=== PATIENT | female | born 1985 | race Hispanic/Latino ===

== ENCOUNTER 2017-06-23 07:30 | Inpatient (IN) | payer BC ==
--- NOTE | 2017-06-19 12:25 | History and Physical Report ---
History of Present Illness Date of examination: 06/15/17 Date of admission: 06/23/2017 Chief complaint: here for c/s with BTL History of present illness: Pt presents for repeat c/s x 3 with BTL All risk, benefits and alternatives were d/w pt and questions were addressed and answered. Consents signed and given to pt to present at hospital on day of surgery. 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: abnormal PAP smear Family/Genetic History: other (see hpi) Social history: no significant social history, - Obstetrical History Expected Date of Delivery: 06/30/17 Actual Gestation: 38 Week(s) 3 Day(s) : 5 Para: 3 Number of Living Children: 3 Medications and Allergies Allergies Allergy/AdvReac Type Severity Reaction Status Date / Time No Known Allergies Allergy Unverified 04/21/14 16:34 Home Medications Medication Instructions Recorded Confirmed Last Taken Type Ibuprofen [Motrin 800 MG tab] 800 mg PO Q8H PRN #30 tablet 04/21/14 Unknown Rx oxyCODONE /ACETAMINOPHEN [Percocet 1 tab PO Q6HR PRN #30 tablet 04/21/14 Unknown Rx 5/325] Review of Systems All systems: negative - Physical Exam Cardiovascular: Normal S1, Normal S2 Lungs: Positive: Clear to auscultation, Normal air movement Abdomen: Positive: normal appearance, soft. Negative: distention, tenderness, guarding Genitourinary (Female): Positive: other (deferred) Extremities: Positive: normal. Negative: tenderness, edema Deep Tendon Reflex Grade: Normal +2 - Obstetrical FHR: auscultation normal Results All other labs normal. Assessment and Plan - Patient Problems (1) 39 weeks gestation of Status: Acute (2) Encounter for sterilization Status: Acute Plan to address problem: -all risks, benefits and alternatives were d/w pt and questions were addressed and answered -consent signed and placed on the chart. (3) Previous delivery affecting Status: Acute Plan to address problem: previous c/s x 2 -consents signed and placed on the chart -all risk,benefits and alternatives were d/w pt and questions were addressed and answered.
[~2017-06-23 07:30] MED LIST: ANCEF/STERILE WATER 2 GM/20 ML 2 GM/20 ML SYRINGE IV NR; BICITRA PO SCH; NORMOSOL-R PH 7.4 1,000 ML IV SCH; PEPCID IV SCH; PITOCin/NS 20 UNIT/1000ML DRIP 20 UNITS/1,000 ML BAG IV SCH; REGLAN IV SCH
[2017-06-23] MEDS ORDERED: LACTATED RINGERS 2,000 ML ONE (10:45)
--- NOTE | 2017-06-23 10:45 | Anesthesia Consultation ---
Anesthesia Consult and Med Hx - Airway Anesthetic Teeth Evaluation: Good ROM Head & Neck: Adequate Mental/Hyoid Distance: Adequate Mallampati Class: Class II Intubation Access Assessment: Probably Good - Pulmonary Exam CTA: Yes - Cardiac Exam Cardiac Exam: RRR - Pre-Operative Health Status ASA Pre-Surgery Classification: ASA2 Proposed Anesthetic Plan: Epidural (combined spinal/epidural) - Pulmonary Hx Smoking: No Hx Asthma: No COPD: No Hx Pneumonia: No - Cardiovascular System Hx Hypertension: No Hx Coronary Artery Disease: No Hx Heart Attack/AMI: No Hx Angina: No - Central Nervous System Hx Seizures: No CVA: No Hx Psychiatric Problems: No - Gastrointestinal Hx Gastroesophageal Reflux Disease: Yes - Endocrine Hx Renal Disease: No Hx End Stage Renal Disease: No Hx Liver Disease: No Hx Non-Insulin Dependent Diabetes: No Hx Thyroid Disease: No Hx Hypothyroidism: No Hx Hyperthyroidism: No - Hematic Hx Anemia: No Hx Sickle Cell Disease: No - Other Systems Hx Alcohol Use: No Hx Obesity: Yes
--- NOTE | 2017-06-23 10:46 | Anesthesia Day of Surgery ---
Anesthesia Day of Surgery - Day of Surgery Patient Examined: Yes Patient H&P Reviewed: Yes Patient is NPO: Yes
[2017-06-23 11:01] LABS: Basophils % (Auto) 0.3 % (0.0-1.8); Eosinophils # (Auto) 0.1 K/mm3 (0.0-0.4); Eosinophils % (Auto) 0.7 % (0.0-4.3); Hematocrit 25.7 % (30.3-42.9); Hemoglobin 8.6 gm/dl (10.1-14.3); Lymphocytes # (Auto) 1.6 K/mm3 (1.2-5.4); Lymphocytes % (Auto) 20.2 % (13.4-35.0); Mean Corpuscular HGB Conc 34 % (30-34); Mean Corpuscular Volume 74 fl (79-97); Monocytes # (Auto) 0.6 K/mm3 (0.0-0.8); Monocytes % (Auto) 6.8 % (0.0-7.3); Red Blood Count 3.48 M/mm3 (3.65-5.03); Red Cell Distribution Width 16.4 % (13.2-15.2)
[2017-06-23 11:03] LABS: Mean Corpuscular Hemoglobin 25 pg (28-32); Platelet Count 96 K/mm3 (140-440)
[2017-06-23] MEDS ORDERED: ASTRAMORPH PF 10MG/10ML ONE (11:24)
[2017-06-23] MEDS ORDERED: NACL 0.9% 500 ML 500 ML IV SCH (11:44)
[2017-06-23] MEDS ORDERED: NACL 0.9% IR ONE ×2 (11:45)
[2017-06-23] MEDS ORDERED: WATER FOR IRRIG STERILE IR ONE ×2 (11:45)
[2017-06-23] MEDS ORDERED: LACTATED RINGERS 1,000 ML ONE (12:00)
[2017-06-23] MEDS ORDERED: METHERGINE IM ONE ×2 (12:17→12:21)
[2017-06-23] MEDS ORDERED: DIPRIVAN 10 MG/ML IV ONE (12:30)
[2017-06-23] MEDS ORDERED: NARCAN 0.4 MG/1 ML IV PRN ×2 (12:47→12:59)
[2017-06-23] MEDS ORDERED: MILK OF MAGNESIA PO PRN (12:59)
[2017-06-23] MEDS ORDERED: LANSINOH TP PRN (12:59)
[2017-06-23] MEDS ORDERED: TUCKS PAD TP PRN (12:59)
[2017-06-23] MEDS ORDERED: MYLICON PO PRN (12:59)
[2017-06-23] MEDS ORDERED: TORADOL IV PRN (12:59)
[2017-06-23] MEDS ORDERED: NORCO 5/325 PO PRN (12:59)
[2017-06-23] MEDS ORDERED: SODIUM CHLORIDE FLUSH SYRINGE 10 ML IV NR (13:00)
[2017-06-23] MEDS ORDERED: ANCEF/NS 1 GM/50 ML 1 GM/50 ML BAG IV SCH (13:00)
--- NOTE | 2017-06-23 13:15 | Operative Report ---
Operative Report Operative Report: Date of procedure: 06/23/2017 Pre-operative diagnosis: 39 weeks gestation Previous section 2 Desires permanent sterilization Anemia Thrombocytopenia Post-operative diagnosis: Same Procedure name(s): Repeat low transverse section via Pfannenstiel skin incision Bilateral tubal ligation via modified [place] method Surgeon: Dr. James Garment Finisher: Ms. Lynette Amato, [employer] CH[employer]ING [employer]TER Anesthesia: Epidural EBL: 900 mL Urine output: 50 mL of clear urine out at the end of the procedure Fluids: 2100 mL Findings: Liveborn male weight 8 lbs. 9 oz. Apgars of 8 and 9 at one and 5 minutes. Nuchal cord 1 Grossly normal fallopian tubes and ovaries bilaterally No abdominal adhesions Indications: Patient presents for repeat section. All risks benefits and alternatives were discussed with the patient patient also desires permanent sterilization. Again all risks benefits and alternatives were discussed with the patient. Consents were signed and placed on the chart. Patient was given ample time to ask questions and have them answered prior to signing the consent forms. Procedure: Patient was taking to the operating room. Patient was then prepped and draped in sterile fashion after anesthesia was found to be adequate. A low transverse skin incision was made with the scalpel through previous incisional scar and carried down to the underlying layer of fascia with the Bovie. The fascia was then incised in the midline and this incision was extended bilaterally with the Bovie. The superior aspect of the fascia was grasped with Merari clamps tented upward and dissected off of the anterior rectus muscles with the scalpel. In similar fashion the inferior aspect of the fascia was grasped with Merari clamps tented upward and dissected off of the anterior rectus muscles. The rectus muscles were then sharply divided in the midline. The peritoneum was identified and entered into sharply. The Hiram retractor was placed The bladder blade was placed. Late A lower transverse uterine incision was made with the scalpel and extended bilaterally with dissection. Artificial rupture of membranes was performed yielding clear amniotic fluid . The 's head was then delivered atraumatically. Nuchal cord 1 was noted and easily reduced. The anterior shoulder and rest of infant delivered without difficulty. The umbilical cord was clamped x2. The cord was cut. The was then placed in sterile bassinet. The cord blood was collected. The placenta was manually extracted in its entirety. The uterus was exteriorized and cleared of all clots and debris. The uterine incision was closed using 0 Vicryl in a running locking fashion. A second imbricating layer of the same suture was then created. The seal was placed along the uterine incision with excellent hemostasis noted. Attention was then turned to the fallopian tubes. A portion of the the left and right tube were grasp with the Blossom suture ligated transected with excellent hemostasis noted Portion of left and right tube were passed off to pathology. The ostia was also arrived with the Bovie bilaterally.The posterior cul-de-sac was copiously irrigated. Uterus was returned to the abdomen. The gutters were also irrigated. The anterior rectus muscles were reapproximated using 3-0 Vicryl. The anterior rectus fascia was reapproximated using 0 Vicryl in a running fashion. The subcuticular fat was reapproximated using 2-0 Vicryl in a running fashion. The skin was reapproximated with running chromic with a subcuticular stitch. The patient tolerated the procedure well. Sponge lap and needle counts were all correct x3. Patient was taken to the recovery room awake and in stable condition.
[2017-06-23] MEDS: DILAUDID IV PRN ×3 (13:33→14:13)
[2017-06-23] MEDS: ZOFRAN IV PRN ×2 (16:11→17:46)
[2017-06-23] MEDS ORDERED: ZOFRAN IV ONE (18:00)
[2017-06-23] MEDS ORDERED: NACL 0.9% 500 ML 500 ML ONE (18:22)
[2017-06-23] MEDS ORDERED: PEPCID IV PRN ×2 (20:56→22:00)
[2017-06-23] MEDS: ceFAZolin 1 GM in NACL 0.9% 20 ML IV SCH (22:27)
[2017-06-23 22:52] LABS: Hematocrit 27.2 % (30.3-42.9); Hemoglobin 8.8 gm/dl (10.1-14.3)
--- NOTE | 2017-06-23 23:00 | Event Note ---
Date: 06/23/17 Pt c/o nausea and emesis since c/s. Her pain is well controlled. with eating ice chips she had increased secretions and spitting. What was seen by myself and nursing staff appears to be spitting or flem. Pt has not had any more emesis since being NPO. Pt advised she may be sensitive the narcotic meds given earlier. She has no abdominal distention on exam and BS are quiet. She is done with 1 unit of PRBC and as per protocol the h/h is being done to see if second unit is needed. Will attempt clear diet in the am. AT this time no obvious cause of the n/v is seen. Will con't to closely monitor.
[2017-06-24] MEDS ORDERED: D5LR 1,000 ML IV ONE (02:15)
[2017-06-24] MEDS ORDERED: D5LR 1,000 ML IV SCH (03:00)
--- NOTE | 2017-06-24 05:55 | Event Note ---
Date: 06/24/17 As per JOSE JUAN Maier, pt nausea is resolving and she feels much better. She declined nausea meds at this time. Will try the ice chips at this time. Shukla removed but uop has remained normal.
[2017-06-24] MEDS ORDERED: BOOSTRIX IM ONE (06:00)
[2017-06-24] MEDS: ceFAZolin 1 GM in NACL 0.9% 20 ML IV SCH (08:35)
--- NOTE | 2017-06-24 10:38 | Progress Note ---
Assessment and Plan - Patient Problems (1) delivery delivered Current Visit: Yes Status: Acute Plan to address problem: Postoperative day #1. Patient without nausea vomiting. Patient tolerating advancing diet well Patient without fever. Will ambulate in halls. We will continue routine postoperative care. is doing well. Will continue routine post operative care. Patient's postoperative hematocrit is 27.2% Subjective - Subjective Date of service: 06/24/17 Patient reports: voiding normally, pain well controlled, flatus, other ( tolerating clear liquids now denies any nausea vomiting) : doing well, nursing well Objective - Vital Signs Latest vital signs: Vital Signs Temp Pulse Resp BP BP Pulse Ox 06/24/17 08:52 97.5 F L 104 H 18 94/44 96 06/24/17 04:41 98.5 F 20 95/53 06/24/17 01:35 97.8 F 55 L 20 96/49 97 06/23/17 21:00 53 L 94/55 94 06/23/17 20:30 57 L 89/58 94 06/23/17 20:00 59 L 94/63 93 06/23/17 19:30 64 101/51 93 06/23/17 15:06 14 06/23/17 15:00 98.3 F 97 H 112/62 06/23/17 14:50 14 06/23/17 14:43 14 06/23/17 14:20 98.0 F 06/23/17 14:13 70 14 107/65 100 06/23/17 14:10 71 7 L 107/65 100 06/23/17 14:07 74 9 L 113/70 100 06/23/17 14:03 14 06/23/17 14:01 66 10 L 116/68 100 06/23/17 13:57 73 14 113/61 100 06/23/17 13:51 70 9 L 113/61 97 06/23/17 13:45 64 10 L 113/61 97 06/23/17 13:40 71 8 L 103/60 98 06/23/17 13:35 69 9 L 103/57 98 06/23/17 13:30 66 9 L 104/57 98 06/23/17 13:25 71 10 L 102/60 100 06/23/17 13:20 72 13 110/54 98 06/23/17 13:19 79 13 103/62 96 03/30/18 13:13 66 11 L 107/58 98 06/23/17 13:10 97.6 F 77 9 L 107/58 95 06/23/17 13:08 82 12 Intake and Output 06/23/17 06/24/17 06/24/17 22:59 06:59 14:59 Intake Total 150 50 Output Total 200 200 Balance -50 -150 Intake: Intake, Free Water 150 50 Output: Urine 200 200 Indwelling Catheter 200 200 Other: Total, Output Amount 200 200 - Exam Breasts: Present: deferred Cardiovascular: Present: Regular rate Lungs: Present: Normal air movement Abdomen: Present: normal appearance, soft Uterus: Present: normal, firm, fundal height at umbilicus Extremities: Present: edema Incision: Present: dry, dressed - Labs Labs: Abnormal lab results 06/23/17 06/23/17 06/23/17 Range/Units 10:05 10:40 22:42 RBC 3.48 L (3.65-5.03) M/mm3 Hgb 8.6 L 8.8 L (10.1-14.3) gm/dl Hct 25.7 L 27.2 L (30.3-42.9) % MCV 74 L (79-97) fl MCH 25 L (28-32) pg RDW 16.4 H (13.2-15.2) % Plt Count 96 L (140-440) K/mm3 Seg Neutrophils % 72.0 H (40.0-70.0) % Crossmatch See Detail
[2017-06-24] MEDS: MOTRIN PO PRN (12:45)
[2017-06-24] MEDS: FEOSOL PO SCH (14:05)
[2017-06-25] MEDS: MOTRIN PO PRN ×2 (00:30→09:53)
--- NOTE | 2017-06-25 08:51 | Discharge Summary ---
Providers - Providers Date of Admission: 06/23/17 09:23 Date of discharge: 06/25/17 Attending physician: KALEIGH PASTRANA Primary care physician: JULIUS BROWNING Hospitalization Reason for admission: section Delivery: Procedure: section, bilateral tubal ligation, repeat low transverse Incision: dressed complications: none Discharge diagnosis: IUP at term delivered baby: male Hospital course: Patient was admitted and underwent above procedure without complications. Her post operative course was benign she was afebrile throughout. Patient postoperative day 1 hematocrit was in an acceptable range. Patient had no orthostatic symptoms. Patient was tolerating regular diet and voiding without difficulty at time of discharge. Patient incision was healing well without evidence of infection. Patient is breast-feeding. Condition at discharge: Good Disposition: DC-01 TO HOME OR SELFCARE - Discharge Diagnoses (1) delivery delivered Status: Acute Plan - Discharge Medications Prescriptions: Ibuprofen 800 mg PO Q6HR #30 tablet oxyCODONE /ACETAMINOPHEN [Percocet 5/325] 1 tab PO Q4HR #30 tab oxyCODONE /ACETAMINOPHEN [Percocet 5/325] 1 tab PO Q4HR #30 tab - Provider Discharge Summary Activity: no sex for 6 weeks, no strenuous exercise Diet: routine Instructions: routine Additional instructions: [] Smoking cessation referral if applicable(refer to patient education folder for contact #) [] Refer to [facility] Booklet Call your doctor immediately for: * Fever > 100.5 * Heavy vaginal bleeding ( >1 pad per hour) * Severe persistent headache * Shortness of breath * Reddened, hot, painful area to leg or breast * Drainage or odor from incision. * Keep incision clean and dry at all times and follow doctor's instructions regarding bathing/showering Patient to keep her appointment at 1 week postop. Patient to make appointment for her son circumcision - Follow up plan Follow up: JULIUS BROWINNG MD [Primary Care Provider] - 7 Days
[2017-06-25] MEDS: FEOSOL PO SCH (09:54)
[2017-06-25 09:58] VITALS: BP 105/56
== END 2017-06-25 13:05 | disposition home or self-care (01) | DRG 765 ==
LOC: APU 09:23 → OB 14:34
PROVIDERS: ADMIT Obstetrics & Gynecology; ATTEND Obstetrics & Gynecology
PROC: 10D00Z1 Extraction of Products of Conception, Low, Open Approach (ICD-10-PCS; principal; 2017-06-23)
PROC: 0UB70ZZ Excision of Bilateral Fallopian Tubes, Open Approach (ICD-10-PCS; 2017-06-23)
PROC: 30233N1 Transfusion of Nonautologous Red Blood Cells into Peripheral Vein, Percutaneous Approach (ICD-10-PCS; 2017-06-23)
PROC: 3E0234Z Introduction of Serum, Toxoid and Vaccine into Muscle, Percutaneous Approach (ICD-10-PCS; 2017-06-25)
DX: O34.211 Maternal care for low transverse scar from previous cesarean delivery (principal); O99.12 Other diseases of the blood and blood-forming organs and certain disorders involving the immune mechanism complicating childbirth; Z68.41 Body mass index [BMI] 40.0-44.9, adult; O99.62 Diseases of the digestive system complicating childbirth; O99.214 Obesity complicating childbirth; O99.02 Anemia complicating childbirth; Z23 Encounter for immunization; Z3A.38 38 weeks gestation of pregnancy; Z37.0 Single live birth; K21.9 Gastro-esophageal reflux disease without esophagitis; E66.9 Obesity, unspecified; D64.9 Anemia, unspecified; D69.6 Thrombocytopenia, unspecified; O69.81X0 Labor and delivery complicated by cord around neck, without compression, not applicable or unspecified
CPT/HCPCS: 36415; 85014; 85018; 85025; 86850; 86900; 86901; 86920; 88302; 88307; 90471; 99211; A6250; G0463; J0690; J1170; J1885; J2210; J2274; J2405; J2590; J2704; J2765; J7040; J7120; J7121; P9016

== ENCOUNTER 2017-06-26 12:49 | Emergency (ER) | payer BC ==
[2017-06-26 13:07] VITALS: BP 125/80
[2017-06-26 14:09] LABS: Bacteria,Urine 1+ /HPF (Negative); Bilirubin,Urine NEG (Negative); Blood,Urine SM (Negative); Color,Urine Yellow (Yellow); Mucus,Urine FEW /HPF; Protein,Urine <15 mg/dL mg/dL (Negative)
[2017-06-26] MEDS ORDERED: NACL 0.9% 500 ML 500 ML IV ONE (15:05)
[2017-06-26] MEDS ORDERED: NACL 0.9% 1000 ML 1,000 ML IV ONE (15:05)
[2017-06-26] MEDS ORDERED: ZOFRAN IV ONE (15:05)
[2017-06-26] MEDS ORDERED: DILAUDID IV ONE (15:05)
[2017-06-26] MEDS ORDERED: TORADOL IV ONE (15:05)
--- NOTE | 2017-06-26 15:08 | Emergency Department Report ---
Blank Doc - Documentation Documentation: Patient is a 32-year-old female who is presenting with headache. The patient is a 3 days secondary to and has had a headache for the last 2 days. Patient states she's been very nauseous and laboratory hungry of last days also. Patient is worried about her headache she does not have a history of headache. Patient will have IV fluids given Torad Dilaudid and Zofran. The patient has less than 15 protein in the urine and blood pressure is normal making preeclampsia much less likely. Patient will be reassessed. Ol
--- NOTE | 2017-06-26 15:30 | Cat Scan Report ---
CT HEAD WITHOUT CONTRAST: HISTORY: Headache. TECHNIQUE: Sequential 2.5mm CT images. COMPARISON: none. FINDINGS: Cerebral Parenchyma: Within normal limits. Cerebellum: Within normal limits. Brainstem: Within normal limits. Ventricles: Normal. Sella: Normal. Extra-axial spaces: Normal. Basal Cisterns: Normal. Intracranial Hemorrhage: None. Midline Shift: None. Calvarium: Normal. Sinuses: Normal. Mastoid Air Cells: Normal. Visualized Orbits: Normal. IMPRESSION: Cranial CT scan within normal limits.
--- NOTE | 2017-06-26 16:00 | Emergency Department Report ---
ED Headache HPI - General Chief Complaint: Headache Stated Complaint: SEVERE ROJO/ 2 DAYS Time Seen by Provider: 06/26/17 14:51 Source: patient, family Exam Limitations: no limitations - History of Present Illness Initial Comments: Patient here with her in [facility] to be evaluation for headache that she reports severe headache status post 2 days ago. Denies any blurred vision or difficulty in speaking. Patient reports that she lost a lot of blood urine surgery and she saw her ENVIRONMENTAL STUDIES PROFESSOR doctor on 06/23/2017 and her hemoglobin and hematocrit was low but she is not on any iron pill. Patient is breast-feeding in. Headache is 10 out of 10 located to the front of her had and also to the sides and she said it is achy and throbbing pain. Patient said that she took Percocet but is not helping her headache. Denies any dizziness. Denies any abdominal pain or back pain. Denies any urinary symptoms. She is Also reported and swelling to both legs she said she had 2 other C-sections in the past and this always happens. Denies any chest pain or shortness of breath. She reports that her ENVIRONMENTAL STUDIES PROFESSOR is aware of swelling to her legs. Denies any leg pain. Swelling goes away with Timing/Duration: 24 hours Quality: severe, achy, constant, throbbing Head Injury Location: frontal, parietal Recent Head Trauma: no recent headache/trauma Modifying Factors: improves with: rest Associated Symptoms: other (anemia). denies: confusion, fatigue, facial pain, fever/chills, flushing, loss of consciousness, nausea/vomiting, nasal congestion , numbness in legs/feet, rash, seizures, sinus infection, stiff neck, vision changes, weakness Allergies/Adverse Reactions: Allergies No Known Allergies Allergy (Unverified 04/21/14 16:34) Home Medications: Ambulatory Orders Ibuprofen [Motrin 800 MG tab] 800 mg PO Q8H PRN #30 tablet 04/21/14 oxyCODONE /ACETAMINOPHEN [Percocet 5/325] 1 tab PO Q6HR PRN #30 tablet 04/21/14 Ibuprofen 800 mg PO Q6HR #30 tablet 06/23/17 oxyCODONE /ACETAMINOPHEN [Percocet 5/325] 1 tab PO Q4HR #30 tab 06/23/17 oxyCODONE /ACETAMINOPHEN [Percocet 5/325] 1 tab PO Q4HR #30 tab 06/23/17 Docusate Sodium [Colace] 100 mg PO BID 30 Days #60 capsule 06/26/17 Ferrous Sulfate [Slow Fe] 142 mg PO BID 30 Days #60 tablet.er 06/26/17 ED Review of Systems ROS: Stated complaint: SEVERE ROJO/ 2 DAYS Other details as noted in HPI Comment: All other systems reviewed and negative Constitutional: no symptoms reported Eyes: denies: eye pain, eye discharge ENT: denies: ear pain, throat pain, epistaxis, congestion Respiratory: no symptoms reported Cardiovascular: denies: chest pain, palpitations, dyspnea on exertion, orthopnea , edema, syncope, paroxysmal nocturnal dyspnea Gastrointestinal: denies: abdominal pain, nausea, vomiting, diarrhea, constipation, hematemesis, melena, hematochezia Genitourinary: denies: urgency, dysuria, frequency, hematuria, discharge Musculoskeletal: other (swelling to both legs). denies: back pain, joint swelling, arthralgia, myalgia Skin: denies: rash Neurological: headache. denies: weakness, numbness, paresthesias, confusion, abnormal gait, vertigo ED Past Medical Hx - Past Medical History Previous Medical History?: Yes Hx Hypertension: No Hx Heart Attack/AMI: No Hx Congestive Heart Failure: No Hx Diabetes: No Hx Deep Vein Thrombosis: No Hx Liver Disease: No Hx Renal Disease: No Hx Sickle Cell Disease: No Hx Seizures: No Hx Asthma: No Hx COPD: No Hx HIV: No Additional medical history: anemia r/t 05/2017, patient reports that she had a lot of blood loss . - Surgical History Past Surgical History?: Yes Additional Surgical History: 3,tubiligation - Family History Family history: no significant - Social History Smoking Status: Never Smoker Substance Use Type: None - Medications Home Medications: Home Medications Medication Instructions Recorded Confirmed Last Taken Type Ibuprofen [Motrin 800 MG tab] 800 mg PO Q8H PRN #30 tablet 04/21/14 06/23/17 Unknown Rx oxyCODONE /ACETAMINOPHEN [Percocet 1 tab PO Q6HR PRN #30 tablet 04/21/14 Unknown Rx 5/325] Ibuprofen 800 mg PO Q6HR #30 tablet 06/23/17 Unknown Rx oxyCODONE /ACETAMINOPHEN [Percocet 1 tab PO Q4HR #30 tab 06/23/17 Unknown Rx 5/325] oxyCODONE /ACETAMINOPHEN [Percocet 1 tab PO Q4HR #30 tab 06/23/17 Unknown Rx 5/325] Docusate Sodium [Colace] 100 mg PO BID 30 Days #60 capsule 06/26/17 Unknown Rx Ferrous Sulfate [Slow Fe] 142 mg PO BID 30 Days #60 tablet.er 06/26/17 Unknown Rx ED Physical Exam - General Limitations: No Limitations General appearance: alert, in no apparent distress - Head Head exam: Present: atraumatic, normocephalic, normal inspection - Expanded Head Exam Expanded Head exam: Absent: laceration, abrasion, contusion, hematoma, racoon eyes, alvarez's sign, general tenderness, tenderness of temporal artery, CSF rhinorrhea , CSF otorrhea - Eye Eye exam: Present: normal appearance, PERRL, EOMI. Absent: scleral icterus, conjunctival injection, nystagmus, periorbital swelling, periorbital tenderness Pupils: Present: normal accommodation - ENT ENT exam: Present: normal orophraynx, mucous membranes dry, TM's normal bilaterally, normal external ear exam. Absent: normal exam - Neck Neck exam: Present: normal inspection, full ROM, other (no C-spine tenderness). Absent: tenderness, meningismus, lymphadenopathy - Respiratory Respiratory exam: Present: normal lung sounds bilaterally. Absent: respiratory distress, chest wall tenderness - Cardiovascular Cardiovascular Exam: Present: regular rate, normal rhythm, normal heart sounds. Absent: systolic murmur, diastolic murmur - GI/Abdominal GI/Abdominal exam: Present: soft, tenderness (tenderness to palpate at C- section scar site.), normal bowel sounds, other (scar to the pelvic area healing well with Steri-Strips in place). Absent: distended, guarding, rebound , rigid, organomegaly, mass, bruit, pulsatile mass, hernia - Extremities Exam Extremities exam: Present: normal inspection, full ROM, pedal edema, other ( swelling to legs and feet which is trace edema. Positive pulses all extremities. No clubbing or cyanosis. +5 strength in all extremities). Absent : tenderness, normal capillary refill, joint swelling, calf tenderness - Back Exam Back exam: Present: normal inspection, full ROM, other (ambulates without any difficulties). Absent: tenderness, CVA tenderness (R), CVA tenderness (L), muscle spasm, paraspinal tenderness, vertebral tenderness, rash noted - Neurological Exam Neurological exam: Present: alert, oriented X3, normal gait, reflexes normal. Absent: motor sensory deficit - Expanded Neurological Exam Expanded Neurological exam: Absent: innattentive, memory loss-remote event, memory loss- recent event, ataxia, receptive aphasia, expressive aphasia, total aphasia, tremor, protecting the airway Patient oriented to: Present: person, place, time Speech: Present: fluid speech Cranial nerves: EOM's Intact: Normal, Gag Reflex: Normal, Tongue Deviation: Normal, Nystagmus: Normal, Facial Sensation: Normal Cerebellar function: Romberg: Normal Upper motor neuron: Pronator Drift: Normal, Sensory Extinction: Normal Sensory exam: Upper Extremity Light Touch: Normal, Upper Extremity Temperature: Normal, UE 2 Point Discrimination: Normal, Lower Extremity Light Touch: Normal, Lower Extremity Temperature: Normal, LE 2 Point Discrimination: Normal Motor strength exam: RUE: 5, LUE: 5, RLE: 5, LLE: 5 DTR: bicep (R): 2+, bicep (L): 2+, tricep (R): 2+, tricep (L): 2+, knee (R): 2+ , knee (L): 2+, ankle (R): 2+, ankle (L): 2+ Best Eye Response ([place]): (4) open spontaneously Best Motor Response ([place]): (6) obeys commands Best Verbal Response ([place]): (5) oriented Dion[place] Total: 15 - Psychiatric Psychiatric exam: Present: normal affect, normal mood - Skin Skin exam: Present: warm, dry, intact, normal color, other (postsurgical scar status post without any signs of infection.) ED Course Vital Signs 06/26/17 06/26/17 13:04 15:56 Temperature 98.2 F Pulse Rate 61 Respiratory 18 18 Rate Blood Pressure 125/80 O2 Sat by Pulse 100 Oximetry - Reevaluation(s) Reevaluation #1: 06/26/17 16:04 Patient received Dilaudid 0.5 mg, Toradol 30 mg IV. Zofran 4 mg ODT. Patient had CT scan done and results show negative findings. Patient given an total of 1.5 L of IV fluid for headache. I discuss CT scan was also patient and CBC and chemistry ordered. Results pending. Reevaluation #2: 06/26/17 17:08 Reevaluation after IV fluid and medication patient states that her pain is down to 4 out of 10. CBC shows patient with anemia and she had anemia post C- section. ED Medical Decision Making - Lab Data Lab Results 06/26/17 06/26/17 06/26/17 Range/Units 13:55 15:59 15:59 WBC 7.7 (4.5-11.0) K/mm3 RBC 3.45 L (3.65-5.03) M/mm3 Hgb 8.6 L (10.1-14.3) gm/dl Hct 26.3 L (30.3-42.9) % MCV 76 L (79-97) fl MCH 25 L (28-32) pg MCHC 33 (30-34) % RDW 17.8 H (13.2-15.2) % Plt Count 109 L (140-440) K/mm3 Lymph % (Auto) 12.6 L (13.4-35.0) % [place] % (Auto) 4.9 (0.0-7.3) % Eos % (Auto) 1.2 (0.0-4.3) % Baso % (Auto) 0.2 (0.0-1.8) % Lymph # 1.0 L (1.2-5.4) K/mm3 [place] # 0.4 (0.0-0.8) K/mm3 Eos # 0.1 (0.0-0.4) K/mm3 Baso # 0.0 (0.0-0.1) K/mm3 Seg Neutrophils % 81.1 H (40.0-70.0) % Seg Neutrophils # 6.2 (1.8-7.7) K/mm3 Sodium 141 (137-145) mmol/L Potassium 3.9 (3.6-5.0) mmol/L Chloride 106.3 (98-107) mmol/L Carbon Dioxide 24 (22-30) mmol/L Anion Gap 15 mmol/L BUN 4 L (7-17) mg/dL Creatinine 0.5 L (0.7-1.2) mg/dL Estimated GFR > 60 ml/min BUN/Creatinine Ratio 8 % Glucose 91 (65-100) mg/dL Calcium 8.0 L (8.4-10.2) mg/dL Total Bilirubin 0.40 (0.1-1.2) mg/dL Direct Bilirubin < 0.2 (0-0.2) mg/dL Indirect Bilirubin 0.2 mg/dL AST 13 (5-40) units/L ALT 8 (7-56) units/L Alkaline Phosphatase 75 (35-129) units/L Total Protein 5.5 L (6.3-8.2) g/dL Albumin 2.8 L (3.9-5) g/dL Albumin/Globulin Ratio 1.0 % Urine Color Yellow (Yellow) Urine Turbidity Clear (Clear) Urine pH 7.0 (5.0-7.0) Ur Specific [place] 1.017 (1.003-1.030) Urine Protein <15 mg/dl (Negative) mg/dL Urine Glucose (UA) Neg (Negative) mg/dL Urine Ketones Neg (Negative) mg/dL Urine Blood Sm (Negative) Urine Nitrite Neg (Negative) Urine Bilirubin Neg (Negative) Urine Urobilinogen 2.0 (<2.0) mg/dL Ur Leukocyte Esterase Neg (Negative) Urine WBC (Auto) 1.0 (0.0-6.0) /HPF Urine RBC (Auto) 5.0 (0.0-6.0) /HPF U Epithel Cells (Auto) 4.0 (0-13.0) /HPF Urine Bacteria (Auto) 1+ (Negative) /HPF Urine Mucus Few /HPF Urine culture pending - Radiology Data Radiology results: report reviewed CT scan of the brain without IV contrast revealed no acute findings. - Medical Decision Making ED course: Patient status post epidural and there is a possibility that her headache could be a result of epidural. Headache has gotten better since medication so agreement to hydrate and take iron medication. Pt here status post 2 days ago with complaint of headache. She had blood loss during surgery and also with swelling to both legs which she says this always happens to her when she has previous . Swelling and goes down with elevation of legs. She has no neurological deficit and her CT scan of the brain was normal. Laboratory findings her CBC with H&H 8.6/26.3 and platelet count is 109. Patient is status post 2 days ago with acute blood loss. Her ENVIRONMENTAL STUDIES PROFESSOR is aware of low H&H but patient is not on any iron tablet. Urinalysis shows small bacteria and otherwise all other values are normal. Patient does not have risk for eclampsia because her blood pressure stable, and she has no protein in her urine. Leg swelling and is something that she experienced in the past from previous . Patient with volume depletion status post with dehydration.Patient received Dilaudid 0.5 mg, Toradol 30 mg IV. Zofran 4 mg ODT. Patient given an total of 1.5 L of IV fluid for headache. Patient reports that her headache was better. I discussed lab work and also CT scan findings with her and she was understanding and and has appointment with her ENVIRONMENTAL STUDIES PROFESSOR on 06/29/2017. Patient discharged home with her with prescription for Slow Fe and I discussed with her she has Percocet at home so she can go ahead and continue with Percocet but also make sure that she increase her fluid intake and if she experiences recurrent symptoms to return to the emergency room otherwise follow-up with her ENVIRONMENTAL STUDIES PROFESSOR as scheduled. I also discussed with her that she should take Colace with iron tablets as this can sometimes cause constipation but also Percocet can definitely cause constipation so she needs to hydrate herself .This case was discussed with Dr. Broderick who screened patient and ordered lab work and CT scan. CT findings and lab work discussed. I discussed possibility of patient needed a blood patch and it was agreed upon after discussing the patient that she will return to the emergency room if her headache worsens to be evaluated. Critical care attestation.: If time is entered above; I have spent that time in minutes in the direct care of this critically ill patient, excluding procedure time. ED Disposition Clinical Impression: Lower extremity edema, Status post , Dehydration Headache Qualifiers: Headache type: unspecified Headache chronicity pattern: acute headache Intractability: not intractable Qualified Code(s): R51 - Headache Anemia Qualifiers: Anemia type: other cause Other causes of anemia: other cause, not classified Qualified Code(s): D64.89 - Other specified anemias Disposition: DC-01 TO HOME OR SELFCARE Is pt being admited?: No Does the pt Need Aspirin: No Condition: Stable Instructions: Acute Headache (ED), Anemia (ED), Dehydration (ED), Leg Edema (ED ) Additional Instructions: Please return to the emergency room if your headache worsens. Please call your ENVIRONMENTAL STUDIES PROFESSOR and let her know that he received in emergency room and treatment that was done. Please increase her fluid intake as you're dehydrated. Continue to take Percocet for pain per ENVIRONMENTAL STUDIES PROFESSOR I discussed the patient that her headache could be from being dehydrated, volume depletion from blood loss and anemia but this could also be from her epidural and if it returns and it is worse to return to the emergency room because she may need to have a blood patch done per anesthesia. Slow Fe for anemia to be taken with Colace. Prescriptions: Docusate Sodium [Colace] 100 mg PO BID 30 Days #60 capsule Ferrous Sulfate [Slow Fe] 142 mg PO BID 30 Days #60 tablet.er Referrals: [facility] [Provider Group] - 06/29/17 PRIMARY CAREMD [Primary Care Provider] - 06/28/17 Forms: Accompanied Note
[2017-06-26 16:22] LABS: Basophils % (Auto) 0.2 % (0.0-1.8); Eosinophils # (Auto) 0.1 K/mm3 (0.0-0.4); Eosinophils % (Auto) 1.2 % (0.0-4.3); Hematocrit 26.3 % (30.3-42.9); Hemoglobin 8.6 gm/dl (10.1-14.3); Lymphocytes % (Auto) 12.6 % (13.4-35.0); Mean Corpuscular HGB Conc 33 % (30-34); Mean Corpuscular Volume 76 fl (79-97); Monocytes # (Auto) 0.4 K/mm3 (0.0-0.8); Monocytes % (Auto) 4.9 % (0.0-7.3); Platelet Count 109 K/mm3 (140-440); Red Blood Count 3.45 M/mm3 (3.65-5.03); Red Cell Distribution Width 17.8 % (13.2-15.2)
[2017-06-26 16:33] LABS: Mean Corpuscular Hemoglobin 25 pg (28-32)
[2017-06-26 16:39] LABS: Alanine Aminotransferase 8 units/L (7-56); Albumin 2.8 g/dL (3.9-5); BUN/Creatinine Ratio 8; Blood Urea Nitrogen 4 mg/dL (7-17); Hemolysis Index 0
[2017-06-26 16:43] LABS: Bilirubin,Direct < 0.2 mg/dL (0-0.2)
== END 2017-06-26 18:35 | disposition home or self-care (01) ==
LOC: ED 12:49
DX: O90.81 Anemia of the puerperium (principal); D64.89 Other specified anemias; E86.0 Dehydration; O90.89 Other complications of the puerperium, not elsewhere classified; R51 Headache; R60.0 Localized edema
CPT/HCPCS: 36415; 70450; 80048; 80074; 81001; 85025; 96361; 96374; 96375; 99284; J1170; J1885; J2405; J7030; J7040; 87086

== ENCOUNTER 2017-06-27 10:23 | Inpatient (IN) | payer BC ==
[2017-06-27] MEDS ORDERED: LANSINOH TP PRN (10:31)
--- NOTE | 2017-06-27 10:31 | History and Physical Report ---
History of Present Illness Date of examination: 06/27/17 Chief complaint: severe ROJO only relieved by laying supine History of present illness: pt delivered via c/s 06/23/17 and after discharge home developed severe ROJO. She was seen in ED yesterday 06/26/17 and received IVF, CT scan and pain medication. CT scan was normal as were vital signs. She was d/c'd home and instructed to return as needed for ROJO. Patient now reporting ROJO only improved with laying supine. Hx from office: EDC Calculations by LMP: 06/30/2017 Past History : 5 Para: 4 Past Medical History: Reviewed history from 05/22/2008 and no changes required: Negative Past Medical History Past Surgical History: Reviewed history from 07/13/2015 and no changes required: C-sectionx3 Past Medical History Abnormal PAP: negative ARIA Exposure: negative Social Hx: Patient is no etoh, no illicit drug use, no tobacco use Smoking History: Patient has never smoked. Infection History HIV Risk Eval: low risk Personal hx. of genital herpes: no Partner hx. of genital herpes: no Rash, Viral, or Febrile illness since last LMP? no Genetic History Congenital Heart Defect: Mom: no Dad: no Alisson Disease: Mom: no Dad: no Thalassemia Mom: no Dad: no Neural Tube Defect Mom: no Dad: no Down's Syndrome Mom: no Dad: no Shawn-Sachs Mom: no Dad: no Sickle Cell Disease/Trait Mom: no Dad: no Hemophilia Mom: no Dad: no Muscular Dystrophy Mom: no Dad: no Cystic Fibrosis Mom: no Dad: no [place] Chorea Mom: no Dad: no Mental Retardation Mom: no Dad: no Fragile X Mom: no Dad: no Other Genetic/Chromosomal Disorder Mom: no Dad: no Child w/other defect Mom: no Dad: no Enviromental Exposures Xray Exposure: no Medication, drug, or alcohol use since LMP: no Chemical/Other Exposure: no Exposure to Cat Liter: no Hx of Parvovirus (Fifth Disease): no 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 Medications (reviewed today): JANETH-BE 0.35 MG ORAL TABS (NORETHINDRONE) 1 tab po qd Current Allergies (reviewed today): No known allergies Past History Past Medical History: other (see HPI) Past Surgical History: other (see HPI) [employer] History: other (see HPI) Family/Genetic History: other (see HPI) - Obstetrical History : 5 Para: 4 Number of Living Children: 4 Medications and Allergies Allergies Allergy/AdvReac Type Severity Reaction Status Date / Time No Known Allergies Allergy Unverified 04/21/14 16:34 Home Medications Medication Instructions Recorded Confirmed Last Taken Type Ibuprofen [Motrin 800 MG tab] 800 mg PO Q8H PRN #30 tablet 04/21/14 06/23/17 Unknown Rx oxyCODONE /ACETAMINOPHEN [Percocet 1 tab PO Q6HR PRN #30 tablet 04/21/14 Unknown Rx 5/325] Ibuprofen 800 mg PO Q6HR #30 tablet 06/23/17 Unknown Rx oxyCODONE /ACETAMINOPHEN [Percocet 1 tab PO Q4HR #30 tab 06/23/17 Unknown Rx 5/325] oxyCODONE /ACETAMINOPHEN [Percocet 1 tab PO Q4HR #30 tab 06/23/17 Unknown Rx 5/325] Docusate Sodium [Colace] 100 mg PO BID 30 Days #60 capsule 06/26/17 Unknown Rx Ferrous Sulfate [Slow Fe] 142 mg PO BID 30 Days #60 tablet.er 06/26/17 Unknown Rx Review of Systems Neurological: headaches (x2 days after delivery) - Physical Exam Breasts: Positive: normal Cardiovascular: Regular rate Lungs: Positive: Clear to auscultation, Normal air movement Abdomen: Positive: normal appearance, soft Extremities: Positive: normal Deep Tendon Reflex Grade: Normal +2 Results All other labs normal. Assessment and Plan Plan to admit for anesthesia consult and probable blood patch. admission orders in chart. Dr. Mckeon aware. - Patient Problems (1) Spinal headache complicating labor and delivery, condition Current Visit: No Status: Acute
[2017-06-27] MEDS ORDERED: ZOFRAN IV PRN (11:00)
[2017-06-27] MEDS ORDERED: SODIUM CHLORIDE FLUSH SYRINGE 10 ML IV NR (11:00)
[2017-06-27] MEDS ORDERED: TYLENOL PO PRN (11:00)
--- NOTE | 2017-06-27 17:08 | Progress Note ---
<MARTA SPARROW - Last Filed: 06/27/17 17:03> Subjective Date of service: 06/27/17 Interval history: patient c/o headache five days post under spinal. The headache is typical for post puncture headache, recommmend blood patch., which patient agreed to. Epidural sterilly placed at L2-3. Autologous blood drawn from left arm and 17cc injected into epidural space. Headache has resolved. Continue to observe the patient. Objective - Constitutional Vitals: Vital Signs - 12hr 06/27/17 06/27/17 06/27/17 14:15 16:40 16:45 Temperature 98.4 F Pulse Rate 60 78 74 Respiratory 13 Rate Blood Pressure 118/77 148/81 114/71 [Left] O2 Sat by Pulse 99 99 100 Oximetry <JAY SOLOMON - Last Filed: 06/27/17 17:13> Objective - Constitutional Vitals: Vital Signs - 12hr 06/27/17 06/27/17 06/27/17 14:15 16:40 16:45 Temperature 98.4 F Pulse Rate 60 78 74 Respiratory 13 Rate Blood Pressure 118/77 148/81 114/71 [Left] O2 Sat by Pulse 99 99 100 Oximetry
[2017-06-27] MEDS: LACTATED RINGERS 1,000 ML IV SCH (22:24)
[2017-06-27] MEDS: MOTRIN PO SCH (23:07)
[2017-06-28] MEDS: LACTATED RINGERS 1,000 ML IV SCH (05:32)
[2017-06-28] MEDS: MOTRIN PO SCH (05:32)
--- NOTE | 2017-06-28 08:34 | Discharge Summary ---
Providers - Providers Date of Admission: 06/27/17 13:51 Date of discharge: 06/28/17 (desires d/c home) Attending physician: KALEIHG PASTRANA 06/27/17 10:31 Consult to Physician [CONS] Stat Comment: Consulting Provider: IFEANYI ZAMAN Physician Instructions: Reason For Exam: Spinal headache Primary care physician: KALEIGH PASTRANA Hospitalization Reason for admission: Headach s/p spinal Condition: Good Procedures: blood patch by anesthesia Hospital course: 23h observation for ROJO and blood patch Disposition: DC-01 TO HOME OR SELFCARE - Discharge Diagnoses (1) Spinal headache complicating labor and delivery, condition Status: Acute Core Measure Documentation - Palliative Care Palliative Care/ Comfort Measures: Not Applicable - Core Measures Any of the following diagnoses?: none Exam - Constitutional Vitals: Temp Pulse Resp BP Pulse Ox 98.7 F 68 18 115/65 100 06/28/17 04:00 06/28/17 04:00 06/28/17 04:00 06/28/17 04:00 06/27/17 16:45 General appearance: Present: no acute distress, well-nourished - EENT Eyes: Present: PERRL ENT: hearing intact, clear oral mucosa - Neck Neck: Present: supple, normal ROM - Respiratory Respiratory effort: normal Respiratory: bilateral: CTA - Cardiovascular Heart Sounds: Present: S1 & S2. Absent: rub, click - Extremities Extremities: pulses symmetrical, No edema Peripheral Pulses: within normal limits - Abdominal General gastrointestinal: Present: soft, non-tender, non-distended, normal bowel sounds Female genitourinary: Present: normal - Integumentary Integumentary: Present: clear, warm, dry - Musculoskeletal Musculoskeletal: gait normal, strength equal bilaterally - Psychiatric Psychiatric: appropriate mood/affect, intact judgment & insight - Neurologic Neurologic: CNII-XII intact, moves all extremities - Additional findings Additional findings: pt reports ROJO is gone, she still feels a little "foggy" but would like to go home. breast feeding. routine f/u in our office. Plan Activity: no restrictions Diet: regular Wound: open to air, keep clean and dry Follow up with: KALEIGH PASTRANA MD [Primary Care Provider] - 7 Days (please call [phone] with any questions or concerns.)
[2017-06-28 10:24] VITALS: BP 122/66
== END 2017-06-28 12:15 | disposition home or self-care (01) | DRG 776 ==
LOC: UNDOADMIN 10:23 → OB 10:23
PROVIDERS: ADMIT Obstetrics & Gynecology; ATTEND Obstetrics & Gynecology
PROC: 3E0R3GC Introduction of Other Therapeutic Substance into Spinal Canal, Percutaneous Approach (ICD-10-PCS; principal; 2017-06-27)
DX: O89.4 Spinal and epidural anesthesia-induced headache during the puerperium (principal)
CPT/HCPCS: A6250; J7120